=== PATIENT | female | born 2000 | race Native Hawaiian/Other Pacific Islander ===

== ENCOUNTER 2022-05-27 22:49 | Emergency (ER) | payer OTHER ==
[~2022-05-27] VITALS: Ht 165.1 cm; Wt 63.5 kg
[2022-05-28 01:35] VITALS: BP 140/91; TEMP 98.1
== END 2022-05-28 01:35 | disposition home or self-care (01) ==
LOC: ED 22:49
DX: M79.621 Pain in right upper arm (principal); M79.18 Myalgia, other site; V48.5XXA Car driver injured in noncollision transport accident in traffic accident, initial encounter; Y92.89 Other specified places as the place of occurrence of the external cause
CPT/HCPCS: 81025; 96372; 99283; J1885